=== PATIENT | female | born 1955 | race Caucasian/White ===

== ENCOUNTER → 2018-07-31 | Outpatient (CLI) | payer OTHER | LOC: RAD 09:18 | DX: R07.89 Other chest pain (principal); R07.81 Pleurodynia ==

== ENCOUNTER → 2018-08-06 | Outpatient (CLI) | payer OTHER | LOC: RAD 08:54 | DX: M17.11 Unilateral primary osteoarthritis, right knee (principal); M47.814 Spondylosis without myelopathy or radiculopathy, thoracic region; M41.86 Other forms of scoliosis, lumbar region; M41.84 Other forms of scoliosis, thoracic region ==

== ENCOUNTER → 2019-06-24 | Outpatient (CLI) | payer OTHER | LOC: RAD 16:49 | DX: M47.22 Other spondylosis with radiculopathy, cervical region (principal) ==